=== PATIENT | male | born 1940 | race Caucasian/White ===

== ENCOUNTER 2017-05-06 11:00 | Day surgery (SDC) | payer MEDICARE, OTHER ==
[~2017-05-06] VITALS: Ht 188 cm; Wt 124.3 kg
[~2017-05-06 11:00] MED LIST: ACETAMINOPHEN 325 MG TAB PO PRN; AMLO5TAB2 PO; BSS with VANC/TOB/EPI for EYE CASES IR ONE; CRES40TA PO; CYCLOPENTOLATE 2% OPHTH SOLN 2ML BTL OS ONE; FURO20TA2 PO; GLYB5TA PO; HEALON DUET (HEALON 10MG/ML 0.55ML & HEALON ENDOCOAT 30MG/ML 0.85ML) As Ordered ONE; INSUDET SC; INSUHUMDS SC; JANU100T PO; JARD1TAB PO; L-thyroxine PO; LIDOCAINE 1% SDV 5 ML VIAL As Ordered ONE; LIDOCAINE 3.5 % 1ML OPHTH TOPICAL GEL OU ONE; MAGN1CAP PO; METF500T13 PO; METHY25TA PO; METO50TA7 PO; MIDAZOLAM INJ 2 MG/2 ML VIAL (J2250) As Ordered ONE; MIRA3350 PO; MONT10TA2 PO; MOXIFLOXACIN IN BSS 0.25MG/0.25ML INTRACAMERAL INJ (OR EYE ONLY)(J2280) As Ordered ONE; NEXI40CA PO; NIAS1000 PO; OFLOXACIN 0.3 % (OCUFLOX) OPTH SOL 5ML OS ONE; PHENYLEPHRINE 2.5% OPHTH SOL 2ML OS ONE; POTA10TA16 PO; POVIDONE-IODINE 5% OPHTH PREP SOL 30ML As Ordered ONE; PRAD150C PO; PROPARACAINE 0.5% OPHTH SOL 15ML OS PRN; TRIAMCINOLONE PRES FR 40 MG/ML 1ML(TRIESENCE)(OR EYE ONLY)(J3300 PER 1MG) As Ordered ONE; TROPICAMIDE 1% OPHTH SOLN 2ML OS ONE; VITA500046 PO; iron PO
[2017-05-06] MEDS ORDERED: LR 1,000 ML IV ONE (11:45)
[2017-05-06] MEDS ORDERED: LIDOCAINE 2% W/EPIN INJ 20ML **PRES FREE As Ordered ONE (14:06)
[2017-05-06] MEDS ORDERED: POVIDONE-IODINE 5% OPHTH PREP SOL 30ML As Ordered ONE (14:14)
[2017-05-06] MEDS ORDERED: AcetaZOLAMIDE 500 MG ER CAP As Ordered ONE (15:12)
[2017-05-06] MEDS ORDERED: TRIMETHOBENZAMIDE 300 MG CAP PO PRN (15:15)
[2017-05-06] MEDS ORDERED: AcetaZOLAMIDE 500 MG ER CAP PO ONE (15:15)
[2017-05-06] MEDS ORDERED: KETOROLAC 0.5% OPHTH SOLN OS ONE (15:15)
[2017-05-06 15:30] VITALS: BP 130/82
== END 2017-05-06 15:32 | disposition home or self-care (01) ==
LOC: M SDC 11:00
PROVIDERS: ATTEND Ophthalmology
DX: H26.9 Unspecified cataract (principal); I25.10 Atherosclerotic heart disease of native coronary artery without angina pectoris; I10 Essential (primary) hypertension; I48.91 Unspecified atrial fibrillation; G47.30 Sleep apnea, unspecified; E78.00 Pure hypercholesterolemia, unspecified; R01.1 Cardiac murmur, unspecified; I99.9 Unspecified disorder of circulatory system; E03.9 Hypothyroidism, unspecified; E11.9 Type 2 diabetes mellitus without complications; Z95.0 Presence of cardiac pacemaker; Z95.2 Presence of prosthetic heart valve; Z95.1 Presence of aortocoronary bypass graft; Z79.899 Other long term (current) drug therapy; Z79.01 Long term (current) use of anticoagulants; Z79.4 Long term (current) use of insulin
CPT/HCPCS: 66984; J2250; J2280; J3300; V2632